=== PATIENT | female | born 1935 | race Hispanic/Latino ===

== ENCOUNTER 2017-05-10 11:05 | Outpatient (CLI) | payer MEDICARE | END 2017-05-10 11:06 | disposition home or self-care (01) | LOC: BICULT 11:05 | PROVIDERS: ATTEND Nurse Practitioner Family | DX: M79.604 Pain in right leg (principal) ==

== ENCOUNTER 2018-04-14 17:46 | Emergency (ER) | payer MEDICARE ==
--- NOTE | 2018-04-14 19:22 | RAD ---
RIGHT FOOT THREE VIEW 04/14/18 HISTORY: Laceration. COMPARISON: Radiograph 2013. FINDINGS: There is significant interphalangeal joint space narrowing. Bones are osteopenic. There is calcificat ions along the long and short plantar ligaments. Moderate arterial medial sclerosis. No acute fracture or malalignment. IMPRESSION: Chronic findings. No acute abnormality. POS: HOME
[2018-04-14] MEDS ORDERED: Adacel (T-DAP) 0.5 ML SYRINGE ONE (19:27)
== END 2018-04-14 19:57 | disposition home or self-care (01) ==
LOC: ERS 17:46
DX: S91.111A Laceration without foreign body of right great toe without damage to nail, initial encounter (principal); E11.9 Type 2 diabetes mellitus without complications; I10 Essential (primary) hypertension; W22.8XXA Striking against or struck by other objects, initial encounter
CPT/HCPCS: 90471; 90715

== ENCOUNTER 2018-12-04 14:45 | Outpatient (CLI) | payer MEDICARE ==
--- NOTE | 2018-12-04 15:06 | RAD ---
Right foot 3 views HISTORY: Right foot pain. FINDINGS: 04/14/2018. FINDINGS: Lisfranc joint alignment is anatomic. Plantar arch is maintained. Moderate osteophytosis th roughout the foot. No significant joint space narrowing. Osseous structures are markedly demineralized. Prominent calcification throughout the arterial structures. Enthesophyte arises from t he plantar origin at the inferior aspect of the calcaneus. IMPRESSION: Severe osteoporosis. Atherosclerosis. Plantar heel spur. Mild degenerative changes.
[2018-12-04 15:20] LABS: #Basophils 0.1 thou/uL (0.0-0.2); #Eosinphils 0.6 thou/uL (0.0-0.7); #Lymphocytes 2.9 thou/uL (1.20-3.40); #Monocytes 0.7 thou/uL (0.11-0.59); #Neutrophils 6.3 thou/uL (1.40-6.50); %Basophils 0.9 % (0.0-1.0); %Eosinophils 5.3 % (0.0-10.0); %Lymphocytes 27.5 % (21.0-51.0); %Neutrophils 59.4 % (42.0-75.0); Mean Corpuscular HGB CONC 33.9 g/dL (32.0-36.0); Mean Corpuscular Hemoglobin 30.3 pg (27.0-31.0); Mean Corpuscular Volume 89.4 fL (78.0-98.0); Mean Platelet Volume 7.6 fL (7.4-10.4); Platelet Count 256 thou/uL (130-400); RBC Distribution Width 14.2 % (11.5-14.5); Red Blood Cell (RBC) Count 3.63 mill/uL (4.20-5.40); White Blood Cell (WBC) Count 10.6 thou/uL (4.8-10.8)
== END 2018-12-04 14:46 | disposition home or self-care (01) ==
LOC: SCSRAD 14:45
PROVIDERS: ATTEND Nurse Practitioner Family
DX: M79.671 Pain in right foot (principal); M81.0 Age-related osteoporosis without current pathological fracture; I70.90 Unspecified atherosclerosis; M77.31 Calcaneal spur, right foot; M19.071 Primary osteoarthritis, right ankle and foot
CPT/HCPCS: 36415; 85025

== ENCOUNTER 2018-12-21 11:21 | Inpatient (IN) | payer MEDICARE ==
[2018-12-21 12:10] LABS: #Basophils 0.1 thou/uL (0.0-0.2); #Eosinphils 0.6 thou/uL (0.0-0.7); #Lymphocytes 2.9 thou/uL (1.20-3.40); #Monocytes 0.7 thou/uL (0.11-0.59); #Neutrophils 5.9 thou/uL (1.40-6.50); %Basophils 0.9 % (0.0-1.0); %Eosinophils 5.6 % (0.0-10.0); %Lymphocytes 28.5 % (21.0-51.0); %Monocytes 6.4 % (0.0-10.0); %Neutrophils 58.6 % (42.0-75.0); Hemoglobin 11.7 g/dL (12.0-16.0); Mean Corpuscular HGB CONC 32.9 g/dL (32.0-36.0); Mean Corpuscular Hemoglobin 29.9 pg (27.0-31.0); Mean Corpuscular Volume 90.9 fL (78.0-98.0); Mean Platelet Volume 7.4 fL (7.4-10.4); Platelet Count 320 thou/uL (130-400); RBC Distribution Width 13.8 % (11.5-14.5); Red Blood Cell (RBC) Count 3.93 mill/uL (4.20-5.40); White Blood Cell (WBC) Count 10.1 thou/uL (4.8-10.8)
[2018-12-21 12:32] LABS: ALT (SGPT) 17 U/L (8-55); AST (SGOT) 25 U/L (5-34); Albumin 3.8 g/dL (3.4-4.8); Alkaline Phosphatase 98 U/L (40-150); Anion Gap 14 mmol/L (10-20); BUN (Urea Nitrogen) 24 mg/dL (9.8-20.1); Bilirubin, Total 0.2 mg/dL (0.2-1.2); Calc. Creatinine Clearance 0 mL/min (70-130); Calcium 9.2 mg/dL (7.8-10.44); Carbon Dioxide 21 mmol/L (23-31); Chloride 106 mmol/L (98-107); Estimated GFR-MDRD 29; Globulin 4.2 g/dL (2.4-3.5); Glucose 223 mg/dL (83-110); Potassium 4.4 mmol/L (3.5-5.1); Sodium 137 mmol/L (136-145)
--- NOTE | 2018-12-21 12:37 | RAD ---
XR Foot Rt 3 View STANDARD History: Wound Comparison: Radiograph December 04, 2018 Findings: Extensive soft tissue swelling of the plantar aspect of the midfoot and forefoot. This oste openia of the fourth metatarsal head. Nondisplaced intra-articular fracture proximal phalanx small toe. No large erosions or periostitis. Moderate vascular calcifications and arterial medial sclerosis. Impression: 1. Mild irregularity osteopenia fourth metatarsal head and neck can be early findings of osteomyeliti s due to hyperemic changes. MRI recommended if warranted. 2. Nondisplaced intra-articular proximal phalanx base small toe.
[2018-12-21] MEDS ORDERED: HYDROcodone/Acetaminophen 5/325 mg Tablet PO PRN (14:37)
[2018-12-21] MEDS ORDERED: Acetaminophen 325 MG TAB PO PRN (14:37)
[2018-12-21] MEDS ORDERED: Senokot S 8.6-50 MG TAB PO PRN (14:37)
[2018-12-21 15:55] VITALS: BMI 24.5
[2018-12-21] MEDS: Piperacillin/Tazobactam 2.25 GM in Sodium Chloride 0.9% 100 ML IVPB SCH ×2 (16:29→23:28)
[2018-12-21] MEDS ORDERED: HumaLOG 300 UNITS/3 ML VIAL SC PRN (16:34)
[2018-12-21] MEDS ORDERED: Dextrose 50% Abboject 50 ML SYRINGE SLOW IVP PRN (16:34)
[2018-12-21] MEDS ORDERED: Dextrose 5% in Water 1,000 ML IV PRN (16:34)
[2018-12-21] MEDS: HumaLOG 300 UNITS/3 ML VIAL SC PRN (16:55)
[2018-12-21] MEDS ORDERED: cloNIDine 0.1 MG TAB PO PRN (17:04)
--- NOTE | 2018-12-21 17:09 | HP ---
PRIMARY CARE PHYSICIANS: RUFINO Christian, and Ramana Downing MD CHIEF COMPLAINT: Right foot pain. HISTORY OF PRESENT ILLNESS: Ms. Wing is an 83-year-old female, who reports to the emergency room for right foot pain after a fall three weeks ago. She reports 2 wounds on the bottom of the right foot. She reports that pain is worse at night and worse when she tries to put any weight on it. Denies fever, chills, or abdominal pain. 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 Family at home has been trying to clean and dress the wound on the bottom of the right foot. She has a laceration at the bottom of the 4th and 5th metatarsal. The pain became excruciating today and so she sought evaluation in the ER. Emergency room obtained an x-ray of the right foot, which showed mild irregularity and osteopenia of the 4th metatarsal head and neck, which could be early findings of osteomyelitis due to hyperemic changes; nondisplaced intra-articular proximal phalanx base of small toe. Lab work; hemoglobin 11.7, hematocrit 35.7. Sodium 137, potassium 4.4, BUN is 24, and creatinine is 1.66, which is slightly higher than it has been since 2017. Last time we have it here in July 2016, it was 1.52. GFR was slightly decreased; in July 2016, it was 33; today, it is 29. Glucose is 223. Liver enzymes are unremarkable. The patient will be admitted to the medical unit for IV antibiotics and further evaluation. REVIEW OF SYSTEMS: All systems are reviewed and are negative unless mentioned in the HPI. PAST MEDICAL HISTORY: Coronary artery disease, type 2 diabetes, hypertension. PAST SURGICAL HISTORY: Left AKA, has a cardiac stent. PSYCHIATRIC HISTORY: None. SOCIAL HISTORY: Lives at home with her family. Her son lives with her and helps take care of her, and they both help take care of the patient's who has dementia. She denies any drug use. She has no smoking history. KNOWN ALLERGIES: None. CURRENT MEDICATIONS: Still need to be reconciled. ER record is blank. When I talked to the [id number], she did not have the list with her either. PHYSICAL EXAMINATION: VITAL SIGNS: Blood pressure 104/78, pulse is 56, respirations are 20, pO2 sats are 98% on room air, temperature is 98. CONSTITUTIONAL: The patient is alert and nontoxic-appearing. She is oriented to person, place, and time. She is mostly Urdu speaking, but does understand some and will answer. [id number] was in the room and helped translate. HEENT: Head is atraumatic and normocephalic. Eyes, pupils are equally round and reactive to light. Extraocular muscles are intact. ENT; mouth exam is normal. Mucous membranes are moist. She has poor dentition. NECK: Trachea is midline. There is no sign of any cervical adenopathy. RESPIRATORY/CHEST: Breath sounds are clear. Chest expansion is equal. CARDIOVASCULAR: Regular heart rate and rhythm. Heart sounds are normal. ABDOMEN: Nontender. Bowel sounds are heard. BACK: Normal range of motion. No tenderness. EXTREMITIES: Upper extremities, normal range of motion. Motor strength is normal. Sensation intact. Radial pulses are normal. Lower extremities, she has a left AKA stump with a well healed scar. There is no erythema or tenderness. Right leg, the patient has a laceration along the plantar surface of the base of the 4th and 5th metatarsal. There is some mild erythema to the right foot with some scabbing. There is some edema also noted to the right foot. It is tender to palpation. NEUROLOGIC: The patient is oriented to person, place, and time. Speech is normal. SKIN: Warm, dry, normal in color other than the skin on the right foot. See lower extremities. PSYCHIATRIC: She has a normal affect. ASSESSMENT AND PLAN: 1. Diabetic foot wound with potential for osteomyelitis. The patient was given vancomycin and Zosyn in the emergency room. We will continue this. We will renal dose normal saline at 75 mL per hour x1 bag. We will ask Dr. Varela to consult. 2. History of diabetes type 2. We will perform Accu-Cheks before meals and at bedtime at a sliding scale for coverage. We will trend. Restart home medications once reconciled. 3. History of hypertension. We will trend. Restart home medications. Add p.r.n. medications as needed. 4. Gastrointestinal prophylaxis will be started. 5. Case was discussed with Dr. Salazar who agrees with plan. 6. Hospital course is dependent on clinical findings. Job ID: [id number]
[2018-12-21] MEDS ORDERED: Acetaminophen/Codeine 30-300mg Tablet PO PRN (17:14)
--- NOTE | 2018-12-21 19:33 | ULT ---
Ultrasound Doppler duplex arterial right lower extremity: DATE: 12/21/2018 HISTORY: 83-year-old female with right frontal ulcer and absent pedal pulse. TECHNIQUE: Grayscale, color-flow, and spectral analysis, of major arteries of right lower extremity. FINDINGS: Doppler waveforms followed by peak systolic velocities in centimeters per second.: Common femoral: Monophasic with preocclusive thump. 125. Profunda femoral: Monophasic. 95. Superficial femoral proximal: Monophasic. C5. Superficial femoral mid: Monophasic with preocclusive thump. 70. Superficial femoral distal: Monophasic with preocclusive thump. 90. Popliteal: Monophasic. 75. Anterior tibial: Monophasic. 55. Posterior tibial: No flow detected. Atherosclerosis of all visualized arteries. IMPRESSION: 1. Occlusion of posterior tibial artery. 2. Abnormal pulse Doppler waveforms throughout all arteries. 3. Atherosclerosis of all arteries.
[2018-12-21] MEDS ORDERED: Lisinopril 10 MG TAB PO SCH (21:00)
[2018-12-21] MEDS ORDERED: Simvastatin 40 MG TAB PO SCH (21:00)
--- NOTE | 2018-12-21 23:02 | CON ---
DATE OF CONSULTATION: 12/21/2018 REASON FOR CONSULTATION: Right foot inflammatory process. HISTORY OF PRESENT ILLNESS: An 83-year-old patient with history of type 2 diabetes, ischemic cardiomyopathy, peripheral vascular disease and a previous left AKA, who has developed an area of fissuring in the fifth MPJ skin site. She had been cared for [facility] and mostly at home by the nurse. She also has had evaluations by Dr. Marc for her vascular situation according to the son. I did not see any peripheral vascular evaluation here though in the imaging studies available for review. There is a venous Doppler of the right lower extremity from 2018, which was normal. She apparently fell and developed inflammatory changes at the lateral right forefoot and was brought in. It seems like she has been having worsening pain in that site over the past few days. No headaches. No change in visual symptoms, sore throat, odynophagia, or dysphagia. No back pain. She denies dyspnea at this moment. No chest pain. No abdominal pain and no diarrhea. She is voiding without difficulty. PAST MEDICAL HISTORY: Includes ischemic cardiomyopathy, hypertension, type 2 diabetes, peripheral vascular disease, prior AKA, left side, CHF. SOCIAL HISTORY: Never smoker. Lives with family in the area. ALLERGIES: NONE. CURRENT MEDICATIONS: 1. [place]. 2. Pepcid. 3. Zosyn. 4. Vancomycin. PHYSICAL EXAMINATION: VITAL SIGNS: T-max 97.5, blood pressure 150/50, pulse 59, respirations 20, O2 saturation 100. SKIN: Shows the area of fissuring with dryness and cracking of the skin right at the interface between the fifth toe and the MPJ skin site. There is very faint pink erythema noted at this site and this is a chronic lesion she has had there for quite a while. There is a little bit of callus right under this fissure. There is dermal thinning noticeable. She has a peripheral IV access. No Young catheter. No lymphadenopathy. HEENT: Ocular movements are conjugate. Sclerae white. Conjunctivae normal. Nasal passages patent. Oral cavity okay. Still has quite a few teeth with marked decay, particularly in the mandible. NECK: Supple. No jugular vein distention or carotid bruits. LUNGS: Symmetric breath sounds, but very obvious and prominent inspiratory crackles up to a 3rd of right and left hemithorax. No wheezing. HEART: Diminished heart sounds, S1, S2. Regular rate without significant murmurs. No S3. ABDOMEN: Soft, not distended or tender. No ascites. No bladder distention. EXTREMITIES: I could not feel any popliteal or dorsalis pedis pulses on the right side. There is no edema. NEUROLOGICAL: She is able to move extremities. She is awake, oriented. Cognitive function appears to be intact. LABORATORY DATA: Sodium 137. Creatinine 1.66. Her baseline is around this. Lactic acid 1.5. Liver profile normal. White cell count 10.1 with normal differential. Urine culture from 2017, but no recent cultures. IMAGING DATA: There is a foot x-ray with irregularity at 4th metatarsal head and neck and nondisplaced intra-articular proximal phalanx small toe fracture. ASSESSMENT: 1. Ischemic cardiomyopathy with congestive heart failure. 2. Peripheral vascular disease with significant vascular insufficiency. 3. Chronic fissuring at the interface between the fifth digit and the metatarsophalangeal joint skin site with poor healing, most likely due to peripheral vascular disease. 4. Radiological changes in the fourth toe, which I do not think there is a clinical correlate of osteomyelitis or any infection in the fourth toe. All the changes are related to that fissure localized to the fifth toe. DISCUSSION: The clinical appearance at the moment of the exam is not consistent with cellulitis or a deeper infection. However, she has been exposed to antimicrobial therapy and that may have modified the appearance. The original findings, however, were not very remarkable. There is just a little bit of erythema noted. My impression is that most likely these changes reflect vascular disease, not true infective cellulitis, although this could be starting a process of cellulitic inflammation. The next step would be to evaluate her arterial supply to the extremity and in terms of imaging studies, I do not think she needs an MRI at this point in time, but depending on clinical progress, she might need a study. I would probably just repeat the x-ray in a week or two to verify stability. Again, the main issue here is going to be the vascular insufficiency that will determine the outcome. If she is not eligible for revascularization, which I am afraid she is not since she had been seeing Dr. Marc, then she will be at risk for future amputations. Job ID: [id number]
[2018-12-22] MEDS: Piperacillin/Tazobactam 2.25 GM in Sodium Chloride 0.9% 100 ML IVPB SCH ×2 (05:30→11:14)
[2018-12-22] MEDS ORDERED: Levothyroxine Sodium 100 MCG TAB PO SCH (06:00)
[2018-12-22 06:12] LABS: #Eosinphils 0.6 thou/uL (0.0-0.7); #Lymphocytes 2.7 thou/uL (1.20-3.40); #Monocytes 0.7 thou/uL (0.11-0.59); #Neutrophils 6.6 thou/uL (1.40-6.50); %Basophils 0.4 % (0.0-1.0); %Eosinophils 5.6 % (0.0-10.0); %Lymphocytes 25.3 % (21.0-51.0); %Monocytes 6.5 % (0.0-10.0); %Neutrophils 62.3 % (42.0-75.0); Hemoglobin 11.2 g/dL (12.0-16.0); Mean Corpuscular HGB CONC 33.4 g/dL (32.0-36.0); Mean Corpuscular Hemoglobin 30.2 pg (27.0-31.0); Mean Corpuscular Volume 90.2 fL (78.0-98.0); Mean Platelet Volume 7.5 fL (7.4-10.4); Platelet Count 288 thou/uL (130-400); RBC Distribution Width 13.6 % (11.5-14.5); Red Blood Cell (RBC) Count 3.71 mill/uL (4.20-5.40); White Blood Cell (WBC) Count 10.5 thou/uL (4.8-10.8)
[2018-12-22 06:41] LABS: ALT (SGPT) 13 U/L (8-55); AST (SGOT) 22 U/L (5-34); Albumin 3.3 g/dL (3.4-4.8); Alkaline Phosphatase 84 U/L (40-150); Anion Gap 10 mmol/L (10-20); BUN (Urea Nitrogen) 30 mg/dL (9.8-20.1); Bilirubin, Total 0.3 mg/dL (0.2-1.2); Calc. Creatinine Clearance 22 mL/min (70-130); Calcium 8.6 mg/dL (7.8-10.44); Carbon Dioxide 21 mmol/L (23-31); Chloride 108 mmol/L (98-107); Estimated GFR-MDRD 28; Globulin 3.6 g/dL (2.4-3.5); Glucose 111 mg/dL (83-110); Potassium 4.3 mmol/L (3.5-5.1); Protein, Total 6.9 g/dL (6.0-8.3); Sodium 135 mmol/L (136-145)
[2018-12-22] MEDS ORDERED: Isosorbide Mononitrate (ER) 30 MG TAB PO SCH (09:00)
[2018-12-22] MEDS ORDERED: Famotidine 20 MG TAB PO SCH (09:00)
[2018-12-22] MEDS ORDERED: Clopidogrel Bisulfate 75 MG TAB PO SCH (09:00)
--- NOTE | 2018-12-22 10:18 | PDOC.EVN ---
Event Note - Event Note Event Note: pt seen and examined agree with WATER/WASTEWATER ENGINEER O'naheed. pt has been having pain to her left 4th and 5th toe. She does have fissuring of 5th MPJ joint toe. she has mild erythema. xray indicates concerns for osteo. will consult ID and start her on abx. vs stable cv s1 s2 present no murmurs lungs clear left lower ext pedal pulse present, mild erythema to 4th and 5th toe, and laceration to plantar aspect of 4-5th crease. 1) cellulitis of left 4-5th toe possible osteo, will start iv abx and consult ID. she may need arterial dopplers. will restart her home meds.
[2018-12-22 11:43] VITALS: BP 124/64; TEMP 97.7
[2018-12-22] MEDS: HumaLOG 300 UNITS/3 ML VIAL SC PRN (12:11)
--- NOTE | 2018-12-22 12:44 | PRG ---
DATE OF SERVICE: 12/22/2018 SUBJECTIVE: Feeling well. A little bit of pain in the right lateral forefoot. Otherwise, no headaches. No shortness of breath or chest pain. OBJECTIVE: VITAL SIGNS: Showed normal temperature. LUNGS: With improvement in the bilateral inspiratory crackles. HEART: S1 and S2. ABDOMEN: Soft. Not distended. EXTREMITIES: The right foot with resolved mild erythema. LABORATORY DATA: Sodium 135, creatinine 1.7. White cell count 10.5, hemoglobin 11. The ultrasound showed diffuse arterial disease, pretty much all the vessels. There is 1 focal obstruction in the tibial artery. ASSESSMENT AND DISCUSSION: Ischemic cardiomyopathy with mild congestive heart failure, peripheral vascular disease with vascular insufficiency, and chronic fissuring of the interface between the fifth digit and the metatarsophalangeal joint skin site with poor healing due to peripheral vascular disease. The radiological changes in the fourth toe are not clinically meaningful at this time. The patient is not eligible for a vascular study because that would probably throw her into end-stage renal disease and hemodialysis dependent, which probably would not be her best option. At this point, I would recommend switching to oral antimicrobial therapy and consider discharge planning. A combination of Keflex with doxycycline for a short period of time, maybe 7 days, would be my preferable option. Evidently, she is at risk for losing the toe or even the foot depending on clinical progress due to the vascular insufficiency that does not seem to be eligible to intervention. Job ID: [id number]
[2018-12-22] MEDS ORDERED: Vancomycin HCl 1 GM in Premix Bag 1 BAG IVPB SCH (13:00)
== END 2018-12-22 16:30 | disposition home health service (06) | DRG 301 ==
LOC: ERS 11:21 → T4-B 15:31
PROVIDERS: ADMIT Internal Medicine; ATTEND Internal Medicine
DX: E11.51 Type 2 diabetes mellitus with diabetic peripheral angiopathy without gangrene (principal); I25.5 Ischemic cardiomyopathy; I50.9 Heart failure, unspecified; I25.10 Atherosclerotic heart disease of native coronary artery without angina pectoris; I11.0 Hypertensive heart disease with heart failure; S91.119A Laceration without foreign body of unspecified toe without damage to nail, initial encounter; E11.22 Type 2 diabetes mellitus with diabetic chronic kidney disease; Z89.9 Acquired absence of limb, unspecified; Z95.5 Presence of coronary angioplasty implant and graft; V29.9XXA Motorcycle rider (driver) (passenger) injured in unspecified traffic accident, initial encounter; Y93.9 Activity, unspecified; Z89.612 Acquired absence of left leg above knee; Z79.4 Long term (current) use of insulin; Z99.2 Dependence on renal dialysis
CPT/HCPCS: 36415; 36416; 80053; 83036; 83605; 85025; 87040; 93923; 96365; 96367; J2543; J3370; J3490

== ENCOUNTER 2019-01-12 13:34 | Outpatient (CLI) | payer MEDICARE ==
--- NOTE | 2019-01-12 14:30 | RAD ---
Exam: XR Foot Rt 2 View HISTORY: Wound right foot. COMPARISON: 12/21/2018. FINDINGS: Again noted is osteopenia of the fourth and fifth metatarsal heads. The toes are held in flexion whic h does limit evaluation. Again noted is slight irregularity involving the base of the proximal phalanx small toe which may be related to positioning. No obvious displaced fracture is identified; a lthough, a subtle nondisplaced fracture was questioned the prior study. No additional fracture is seen, and there is no dislocation. No osseous destruction is identified. The Lisfranc joint is normal ly aligned. Plantar calcaneal enthesophyte is present. Vascular calcifications are seen about the foot. There is mild subcutaneous soft tissue swelling about at the distal plantar aspect of the foref oot with mild subcutaneous soft tissue swelling seen at the dorsal aspect of the foot. IMPRESSION: 1. Subcutaneous soft tissue swelling with persistent and stable osteopenia involving the fourth and f ifth metatarsal heads. MRI of the foot would be better study of choice if there is concern for osteomyelitis. 2. Vascular calcifications about the foot.
== END 2019-01-12 13:35 | disposition home or self-care (01) ==
LOC: BICRAD 13:34
PROVIDERS: ATTEND Nurse Practitioner Family
DX: S91.301A Unspecified open wound, right foot, initial encounter (principal); L03.115 Cellulitis of right lower limb; M79.89 Other specified soft tissue disorders

== ENCOUNTER 2020-10-15 11:28 | Inpatient (IN) | payer MEDICARE ==
[2020-10-15] MEDS ORDERED: Nitroglycerin 2% Ointment 1 INCH/1 GM Packet ONE (11:34)
[2020-10-15] MEDS ORDERED: Aspirin Chewable 81 MG TAB ONE (11:48)
[2020-10-15] MEDS ORDERED: Furosemide 40 MG/4 ML VIAL ONE (11:48)
[2020-10-15 12:21] LABS: #Eosinphils 0.3 thou/uL (0.0-0.7); #Lymphocytes 2.1 thou/uL (1.20-3.40); #Monocytes 0.5 thou/uL (0.11-0.59); #Neutrophils 11.5 thou/uL (1.40-6.50); %Basophils 0.2 % (0.0-1.0); %Eosinophils 1.9 % (0.0-10.0); %Lymphocytes 14.6 % (21.0-51.0); %Monocytes 3.7 % (0.0-10.0); %Neutrophils 79.6 % (42.0-75.0); Hemoglobin 11.5 g/dL (12.0-16.0); Mean Corpuscular HGB CONC 34.5 g/dL (32.0-36.0); Mean Corpuscular Hemoglobin 31.3 pg (27.0-31.0); Mean Corpuscular Volume 90.6 fL (78.0-98.0); Mean Platelet Volume 7.6 fL (7.4-10.4); Platelet Count 309 thou/uL (130-400); RBC Distribution Width 13.5 % (11.5-14.5); Red Blood Cell (RBC) Count 3.67 mill/uL (4.20-5.40); White Blood Cell (WBC) Count 14.5 thou/uL (4.8-10.8)
[2020-10-15 12:41] LABS: ALT (SGPT) 13 U/L (8-55); AST (SGOT) 21 U/L (5-34); Albumin 3.4 g/dL (3.4-4.8); Alkaline Phosphatase 103 U/L (40-110); Anion Gap 17 mmol/L (10-20); BUN (Urea Nitrogen) 31 mg/dL (9.8-20.1); Bilirubin, Total 0.6 mg/dL (0.2-1.2); CK (CPK) 42 U/L (29-168); Calc. Creatinine Clearance 0 mL/min (70-130); Calcium 8.8 mg/dL (7.8-10.44); Carbon Dioxide 17 mmol/L (23-31); Chloride 107 mmol/L (98-107); Globulin 3.8 g/dL (2.4-3.5); Glucose 154 mg/dL (83-110); Lipase 22 U/L (8-78); Potassium 5.3 mmol/L (3.5-5.1); Protein, Total 7.2 g/dL (5.8-8.1); Sodium 136 mmol/L (136-145)
[2020-10-15 13:04] LABS: SARS-CoV-2 NAA Rapid Test Not Detected (NotDetected)
[2020-10-15] MEDS ORDERED: Senokot S 8.6-50 MG TAB PO PRN (13:59)
[2020-10-15] MEDS ORDERED: Dextrose 5% in Water 1,000 ML IV PRN ×2 (13:59→21:40)
[2020-10-15] MEDS ORDERED: Calcium Carbonate 500 MG ChewTAB PO PRN (13:59)
[2020-10-15] MEDS ORDERED: Guaifenesin DM 100-10/5 ML UDCUP PO PRN (13:59)
[2020-10-15] MEDS ORDERED: Acetaminophen 325 MG TAB PO PRN (13:59)
[2020-10-15] MEDS ORDERED: Dextrose 50% Abboject 50 ML SYRINGE SLOW IVP PRN ×2 (13:59→21:40)
[2020-10-15] MEDS ORDERED: Bisacodyl 10 MG SUPP PR PRN (13:59)
[2020-10-15] MEDS ORDERED: Ondansetron PF 4 MG/2 ML Vial IVP PRN (13:59)
[2020-10-15 15:56] LABS: Troponin I Less than 0.010 ng/mL (< 0.028)
[2020-10-15 19:04] LABS: Troponin I Less than 0.010 ng/mL (< 0.028)
[2020-10-15] MEDS ORDERED: Lantus 1000 UNITS/10 ML VIAL SC SCH (21:00)
[2020-10-15] MEDS: Doxycycline 100 MG CAP PO SCH (21:09)
[2020-10-15] MEDS: Carvedilol 6.25 MG TAB PO SCH (21:10)
[2020-10-15] MEDS: Atorvastatin Calcium 20 MG TAB PO SCH (21:10)
[2020-10-15] MEDS ORDERED: HumaLOG 300 UNITS/3 ML VIAL SC PRN (21:40)
[2020-10-15 23:20] VITALS: BMI 27.3
[2020-10-16] MEDS: CEFEPIME HCL IN DEXTROSE 5 % 1 GM in Premix Bag 1 BAG IVPB SCH ×3 (01:59→14:21)
[2020-10-16] MEDS: Furosemide 40 MG/4 ML VIAL SLOW IVP SCH ×3 (01:59→14:21)
[2020-10-16 05:00] LABS: #Lymphocytes 1.1 thou/uL (1.20-3.40); #Monocytes 0.2 thou/uL (0.11-0.59); #Neutrophils 6.2 thou/uL (1.40-6.50); %Lymphocytes 14.5 % (21.0-51.0); %Monocytes 2.9 % (0.0-10.0); %Neutrophils 82.5 % (42.0-75.0); Hemoglobin 10.6 g/dL (12.0-16.0); Mean Corpuscular HGB CONC 33.8 g/dL (32.0-36.0); Mean Corpuscular Hemoglobin 30.9 pg (27.0-31.0); Mean Corpuscular Volume 91.3 fL (78.0-98.0); Mean Platelet Volume 8.3 fL (7.4-10.4); Platelet Count 276 thou/uL (130-400); RBC Distribution Width 13.8 % (11.5-14.5); Red Blood Cell (RBC) Count 3.42 mill/uL (4.20-5.40); White Blood Cell (WBC) Count 7.5 thou/uL (4.8-10.8)
[2020-10-16 05:13] LABS: Anion Gap 17 mmol/L (10-20); BUN (Urea Nitrogen) 48 mg/dL (9.8-20.1); Calc. Creatinine Clearance 20 mL/min (70-130); Calcium 8.4 mg/dL (7.8-10.44); Carbon Dioxide 17 mmol/L (23-31); Chloride 105 mmol/L (98-107); Glucose 493 mg/dL (83-110); Potassium 4.5 mmol/L (3.5-5.1); Sodium 134 mmol/L (136-145)
[2020-10-16] MEDS: Levothyroxine Sodium 75 MCG TAB PO SCH (05:31)
[2020-10-16] MEDS: HumaLOG 300 UNITS/3 ML VIAL SC PRN ×2 (05:49→12:25)
[2020-10-16] MEDS ORDERED: Enoxaparin Sodium 30 MG/0.3 ML SYRINGE SC SCH (09:00)
[2020-10-16] MEDS: Clopidogrel Bisulfate 75 MG TAB PO SCH (09:09)
[2020-10-16] MEDS: Docusate 100 MG CAP PO SCH (09:09)
[2020-10-16] MEDS: Doxycycline 100 MG CAP PO SCH (09:09)
[2020-10-16] MEDS: Carvedilol 6.25 MG TAB PO SCH ×2 (09:10→21:11)
[2020-10-16] MEDS: Aspirin Chewable 81 MG TAB PO SCH (09:10)
[2020-10-16] MEDS ORDERED: Lantus 1000 UNITS/10 ML VIAL SC SCH (21:00)
[2020-10-16] MEDS: Atorvastatin Calcium 20 MG TAB PO SCH (21:11)
[2020-10-17] MEDS: CEFEPIME HCL IN DEXTROSE 5 % 1 GM in Premix Bag 1 BAG IVPB SCH (03:46)
[2020-10-17] MEDS: Levothyroxine Sodium 75 MCG TAB PO SCH (06:08)
[2020-10-17] MEDS: Furosemide 40 MG/4 ML VIAL SLOW IVP SCH ×2 (06:08→14:17)
[2020-10-17] MEDS: Clopidogrel Bisulfate 75 MG TAB PO SCH (08:41)
[2020-10-17] MEDS: Aspirin Chewable 81 MG TAB PO SCH (08:41)
[2020-10-17] MEDS: Docusate 100 MG CAP PO SCH (08:42)
[2020-10-17] MEDS: Carvedilol 6.25 MG TAB PO SCH ×2 (08:42→20:47)
[2020-10-17] MEDS: Amoxicillin/Potassium Clav 875 MG TAB PO SCH (20:47)
[2020-10-17] MEDS: Atorvastatin Calcium 20 MG TAB PO SCH (20:47)
[2020-10-17] MEDS ORDERED: Lantus 1000 UNITS/10 ML VIAL SC SCH (21:00)
[2020-10-18 04:48] LABS: #Basophils 0.1 thou/uL (0.0-0.2); #Eosinphils 0.7 thou/uL (0.0-0.7); #Monocytes 1.1 thou/uL (0.11-0.59); #Neutrophils 6.5 thou/uL (1.40-6.50); %Basophils 0.8 % (0.0-1.0); %Eosinophils 5.8 % (0.0-10.0); %Lymphocytes 32.2 % (21.0-51.0); %Monocytes 8.8 % (0.0-10.0); %Neutrophils 52.4 % (42.0-75.0); Hemoglobin 9.9 g/dL (12.0-16.0); Mean Corpuscular Hemoglobin 30.6 pg (27.0-31.0); Mean Corpuscular Volume 92.5 fL (78.0-98.0); Mean Platelet Volume 8.1 fL (7.4-10.4); Platelet Count 299 thou/uL (130-400); RBC Distribution Width 13.9 % (11.5-14.5); Red Blood Cell (RBC) Count 3.23 mill/uL (4.20-5.40); White Blood Cell (WBC) Count 12.4 thou/uL (4.8-10.8)
[2020-10-18 05:11] LABS: Anion Gap 17 mmol/L (10-20); BUN (Urea Nitrogen) 74 mg/dL (9.8-20.1); Calc. Creatinine Clearance 17 mL/min (70-130); Carbon Dioxide 16 mmol/L (23-31); Chloride 106 mmol/L (98-107); Glucose 105 mg/dL (83-110); Potassium 4.1 mmol/L (3.5-5.1); Sodium 135 mmol/L (136-145)
[2020-10-18] MEDS: Levothyroxine Sodium 75 MCG TAB PO SCH (06:02)
[2020-10-18] MEDS: Furosemide 40 MG/4 ML VIAL SLOW IVP SCH ×2 (06:02→13:45)
[2020-10-18] MEDS: Clopidogrel Bisulfate 75 MG TAB PO SCH (09:56)
[2020-10-18] MEDS: Carvedilol 6.25 MG TAB PO SCH ×2 (09:56→21:36)
[2020-10-18] MEDS: Amoxicillin/Potassium Clav 875 MG TAB PO SCH ×2 (09:56→21:35)
[2020-10-18] MEDS: Aspirin Chewable 81 MG TAB PO SCH (09:56)
[2020-10-18] MEDS: Docusate 100 MG CAP PO SCH (09:56)
[2020-10-18] MEDS ORDERED: Lantus 1000 UNITS/10 ML VIAL SC SCH (21:00)
[2020-10-18] MEDS: Atorvastatin Calcium 20 MG TAB PO SCH (21:35)
[2020-10-19 04:48] LABS: #Basophils 0.1 thou/uL (0.0-0.2); #Eosinphils 0.8 thou/uL (0.0-0.7); #Lymphocytes 3.1 thou/uL (1.20-3.40); #Neutrophils 6.4 thou/uL (1.40-6.50); %Basophils 0.6 % (0.0-1.0); %Eosinophils 6.8 % (0.0-10.0); %Lymphocytes 27.3 % (21.0-51.0); %Monocytes 8.6 % (0.0-10.0); %Neutrophils 56.8 % (42.0-75.0); Mean Corpuscular HGB CONC 32.3 g/dL (32.0-36.0); Mean Corpuscular Hemoglobin 29.7 pg (27.0-31.0); Platelet Count 301 thou/uL (130-400); RBC Distribution Width 13.6 % (11.5-14.5); Red Blood Cell (RBC) Count 3.36 mill/uL (4.20-5.40); White Blood Cell (WBC) Count 11.3 thou/uL (4.8-10.8)
[2020-10-19 05:08] LABS: Anion Gap 17 mmol/L (10-20); BUN (Urea Nitrogen) 75 mg/dL (9.8-20.1); Calc. Creatinine Clearance 19 mL/min (70-130); Calcium 7.8 mg/dL (7.8-10.44); Carbon Dioxide 18 mmol/L (23-31); Chloride 106 mmol/L (98-107); Glucose 120 mg/dL (83-110); Potassium 3.8 mmol/L (3.5-5.1); Sodium 137 mmol/L (136-145)
[2020-10-19] MEDS: Levothyroxine Sodium 75 MCG TAB PO SCH (05:53)
[2020-10-19] MEDS ORDERED: Furosemide 40 MG TAB PO SCH (07:30)
[2020-10-19] MEDS: Clopidogrel Bisulfate 75 MG TAB PO SCH (08:13)
[2020-10-19] MEDS: Aspirin Chewable 81 MG TAB PO SCH (08:13)
[2020-10-19] MEDS: Amoxicillin/Potassium Clav 875 MG TAB PO SCH (08:13)
[2020-10-19] MEDS: Docusate 100 MG CAP PO SCH (08:14)
[2020-10-19] MEDS: Carvedilol 6.25 MG TAB PO SCH (08:14)
[2020-10-19 11:50] VITALS: BP 136/63; TEMP 97.4
== END 2020-10-19 12:55 | disposition home or self-care (01) | DRG 291 ==
LOC: ERS 11:28 → ERHOLD 13:03 → 2NO 19:02
PROVIDERS: ADMIT Internal Medicine; ATTEND Internal Medicine
PROC: 5A09357 Assistance with Respiratory Ventilation, Less than 24 Consecutive Hours, Continuous Positive Airway Pressure (ICD-10-PCS; principal; 2020-10-15)
DX: I13.0 Hypertensive heart and chronic kidney disease with heart failure and stage 1 through stage 4 chronic kidney disease, or unspecified chronic kidney disease (principal); I50.43 Acute on chronic combined systolic (congestive) and diastolic (congestive) heart failure; J96.01 Acute respiratory failure with hypoxia; J18.9 Pneumonia, unspecified organism; N17.9 Acute kidney failure, unspecified; E87.2 Acidosis; E11.22 Type 2 diabetes mellitus with diabetic chronic kidney disease; N18.9 Chronic kidney disease, unspecified; D64.9 Anemia, unspecified; I25.5 Ischemic cardiomyopathy; E11.51 Type 2 diabetes mellitus with diabetic peripheral angiopathy without gangrene; I25.10 Atherosclerotic heart disease of native coronary artery without angina pectoris; E03.9 Hypothyroidism, unspecified; E78.5 Hyperlipidemia, unspecified; I08.0 Rheumatic disorders of both mitral and aortic valves; Z20.822 Contact with and (suspected) exposure to COVID-19; E11.649 Type 2 diabetes mellitus with hypoglycemia without coma; Z95.5 Presence of coronary angioplasty implant and graft; Z89.612 Acquired absence of left leg above knee; Z98.890 Other specified postprocedural states; Z98.49 Cataract extraction status, unspecified eye
CPT/HCPCS: 0240U; 36415; 36416; 71045; 80048; 80053; 82550; 83605; 83690; 83880; 84443; 84484; 85025; 87040; 93005; 93306; 94640; 94660; 96374; 97139; J0692; J1815; J1940; J7620

== ENCOUNTER 2022-10-14 19:10 | Emergency (ER) | payer MEDICARE ==
[2022-10-14] MEDS ORDERED: Acetaminophen 500 MG TAB ONE (19:30)
== END 2022-10-14 20:38 | disposition home or self-care (01) ==
LOC: ERS 19:10
DX: S00.83XA Contusion of other part of head, initial encounter (principal); S81.811A Laceration without foreign body, right lower leg, initial encounter; E11.9 Type 2 diabetes mellitus without complications; I10 Essential (primary) hypertension; W19.XXXA Unspecified fall, initial encounter
CPT/HCPCS: 70450; 70486; 72125

== ENCOUNTER 2022-10-18 19:53 | Emergency (ER) | payer MEDICARE ==
[2022-10-18] MEDS ORDERED: Acetaminophen 325 MG TAB ONE (21:28)
== END 2022-10-18 23:06 | disposition home or self-care (01) ==
LOC: ERS 19:53
DX: S42.412A Displaced simple supracondylar fracture without intercondylar fracture of left humerus, initial encounter for closed fracture (principal); E11.9 Type 2 diabetes mellitus without complications; I10 Essential (primary) hypertension; W05.1XXA Fall from non-moving nonmotorized scooter, initial encounter
CPT/HCPCS: 29105